=== PATIENT | female | born 1945 ===

== ENCOUNTER 2018-06-19 17:55 | Emergency (ER) | payer SELFPAY ==
[2018-06-19 17:56] VITALS: BMI 26.5
[2018-06-19 18:35] VITALS: BP 148/65; PULSE 89; RESP 20; TEMP 98; O2SAT 96
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
== END 2018-06-19 19:30 | disposition home or self-care (01) ==
LOC: C.ER 17:55
DX: S46.911A Strain of unspecified muscle, fascia and tendon at shoulder and upper arm level, right arm, initial encounter (principal); S43.401A Unspecified sprain of right shoulder joint, initial encounter; X58.XXXA Exposure to other specified factors, initial encounter